=== PATIENT | female | born 1990 | race Caucasian/White ===

== ENCOUNTER 2018-07-26 01:07 | Outpatient (CLI) | payer MEDICAID, SELFPAY ==
--- NOTE | 2018-07-26 14:30 | DI.MRI_ITS ---
SYMPTOMS/DIAGNOSIS: ALTERED SENSATION OF SKIN HEAD, MIGRAINE HEADACHE, G43.909 BRAIN MRI: MRI examination of the brain was performed according to the usual protocol. Ventricular system is normal in appearance. No signal abnormality identified in the brain. There is normal flow void in the [place] vasculature. The orbital and temporal bone structures appear intact. Diffusion weighted imaging is within normal limits with no evidence of cerebral infarction. Susceptibility weighted imaging shows no evidence of hemorrhage. CONCLUSION: Normal brain MRI.
== END 2018-07-26 01:27 ==
PROVIDERS: PCP Nurse Practitioner Family; Visit Provider Nurse Practitioner Family
DX: G43.909 Migraine, unspecified, not intractable, without status migrainosus (principal); R20.0 Anesthesia of skin
CPT/HCPCS: 70551

== ENCOUNTER 2018-11-29 20:16 | Outpatient (REF) | payer MEDICAID, SELFPAY ==
[2018-11-29 20:02] LABS: Abs Immature Grans 0.02 k/cumm (0.0-0.09); Absolute Basophil Count 0.04 k/cumm (0.0-0.2); Absolute Eosinophil Count 0.15 k/cumm (0.0-0.7); Absolute Lymphocyte Count 2.53 k/cumm (1.2-3.4); Absolute Monocyte Count 0.57 k/cumm (0.11-0.7); Absolute Neutrophil Count 4.92 k/cumm (1.2-6.7); Basophils % 0.5; Eosinophils % 1.8; HCT 37.8 % (36.0-46.0); HGB 12.9 g/dL (12.0-15.5); Immature Grans % 0.2; Lymphocytes % 30.7; Mean Corp. HGB Concentration 34.1 g/dL (32.0-36.0); Mean Corpuscular Hemoglobin 30.8 pg (27.0-33.0); Mean Corpuscular Volume 90.2 fL (80-95); Mean Platelet Volume 10.9 fL (8.0-11.0); Monocytes % 6.9; Neutrophils % 59.9; Platelet Count 364 x1000/uL (130-400); RBC 4.19 m/cumm (4.00-5.20); RBC Distribution Width 12.1 % (11.7-14.6); White Blood Cell Count 8.23 k/cumm (4.4-10.8)
[2018-11-29 20:16] LABS: ALT 36 U/L (12-78); AST 20 U/L (15-37); Albumin 4.4 g/dL (3.4-5.0); Alkaline Phosphatase 80 U/L (46-116); Anion Gap 7.6 mmol/L (3-11); BUN 11 mg/dL (7-18); Bilirubin, Total 0.3 mg/dL (0.2-1.0); CO2 29.4 mmol/L (21.0-32.0); CREATININE 0.59 mg/dL (0.55-1.02); Calcium 9.9 mg/dL (8.5-10.1); Chloride 103 mmol/L (98-107); Glucose 83 mg/dL (70-100); Potassium 4.3 mmol/L (3.5-5.1); Sodium 140 mmol/L (136-145); TSH (W/Ref FT4) 0.96 uIU/mL (0.358-3.74); Total Protein 7.8 g/dL (6.4-8.2)
== END 2018-11-29 20:36 ==
LOC: NCHCN 20:16
PROVIDERS: PCP Nurse Practitioner Family; Visit Provider Nurse Practitioner Family
DX: R53.83 Other fatigue (principal); R23.2 Flushing; R11.0 Nausea; R42 Dizziness and giddiness; R19.7 Diarrhea, unspecified
CPT/HCPCS: 80053; 84443; 85025

== ENCOUNTER 2019-01-14 15:25 | Outpatient (REF) | payer MEDICAID, SELFPAY ==
[2019-01-17 18:11] LABS: 5-Hydroxyindoleacetic Acid, U 3.1 mg/24 h (<=8.0); Urine Volume 800 mL
[2019-01-18 01:21] LABS: Metanephrines, U 106 mcg/24 h; Normetanephrine, U 226 mcg/24 h; Total Metanephrines, U 332 mcg/24 h; Urine Volume 800 mL
[2019-01-18 13:23] LABS: Urine Volume 800 mL
[2019-01-19 21:26] LABS: Creatinine, 24hr Urine 0.98 g/24 h (0.50-2.15); Histamine, 24hr Urine 0.027 mg/24 h
== END 2019-01-14 15:45 ==
LOC: LBN 15:25
PROVIDERS: PCP Nurse Practitioner Family; Visit Provider Nurse Practitioner Family
DX: R23.2 Flushing (principal)
CPT/HCPCS: 81050; 82384; 83088; 83497; 83835

== ENCOUNTER 2019-01-15 15:27 | Outpatient (REF) | payer MEDICAID, SELFPAY ==
[2019-01-31 10:27] LABS: Prostaglandin D2, Random Ur 284 ng/L
== END 2019-01-15 15:47 ==
LOC: LBN 15:27
PROVIDERS: PCP Nurse Practitioner Family; Visit Provider Nurse Practitioner Family
DX: R23.2 Flushing (principal)
CPT/HCPCS: 84150

== ENCOUNTER 2019-03-21 16:29 | Outpatient (REF) | payer MEDICAID, SELFPAY ==
--- NOTE | 2019-03-21 15:45 | PAPFT_PTH ---
PATIENT: Camilla Isaacs LOC: [facility] U#:[id number] AGE/SX: 28/F ROOM: RE03/21/[address]: Mallory Pang NP : 1990 BED: DIS: 03/21/2019 SPEC #: [id number] RECD: 03/21/19 16:48 STATUS: DONNA REJalyn #: [id number] OTTO: 03/21/19 15:[address]: Mallory Pang NP DEPT: [facility] Cytology RECD BY: Carline Chong ENTERED: 03/21/19 16:49 SP TYPE: PAPFT OTHR DR: Nury Lo Tissues: 1 - CX/ENDOCX FOR PAP SMEARS Procedures: PAP THIN PREP/UVM Screening HPV DNA PROBE Comments: [id number]
== END 2019-03-21 16:49 ==
LOC: LBN 16:29
PROVIDERS: PCP Nurse Practitioner Family; Visit Provider Nurse Practitioner Women's Health
DX: Z12.4 Encounter for screening for malignant neoplasm of cervix (principal); Z11.51 Encounter for screening for human papillomavirus (HPV)
CPT/HCPCS: 88142; 87624

== ENCOUNTER 2019-06-17 15:05 | Emergency (ER) | payer MEDICAID, SELFPAY ==
[2019-06-17 15:09] VITALS: BP 125/79; PULSE 89; RESP 16; TEMP 36.3; O2SAT 98
--- NOTE | 2019-06-17 15:30 | W.ED.GENAD ---
Discharge Plan Disposition Patient Disposition: HOME Condition: Fair Discharge Details Chief Complaint: DentalOral Clinical Impression: Pain, dental Primary Care Provider: Rufino Kirk ED Provider: Olimpia David Home Meds and New Rx's Prescriptions: New clindamycin HCl 150 mg capsule 450 mg PO TID 7 Days Qty: 63 RF: 0 tramadol 50 mg tablet 50 mg PO Q6H PRN (Reason: pain) Qty: 7 RF: 0 ondansetron 4 mg tablet,disintegrating 4 mg PO Q6H PRN (Reason: nausea and vomiting) Qty: 7 RF: 0 Continued sumatriptan succinate 100 mg tablet See Rx Instructions PO .COMPLEX Qty: 12 RF: 5 ammonium lactate 12 % cream 1 applic TP BID RF: 0 albuterol sulfate [ProAir HFA] 90 mcg/actuation HFA aerosol inhaler 2 puff IH QID RF: 0 Mirena 20 mcg/24 hours (5 yrs) 52 mg intrauterine device 1 device IY ONCE RF: 0 triamcinolone acetonide 0.5 % cream 1 applic TP QID PRNRF: 0 bupropion HCl [Wellbutrin] 100 MG tablet 200 mg PO DAILY RF: 0 Discharge Instructions Instructions: Toothache (ED) Additional Instructions: Encourage hydration. Tylenol and ibuprofen as needed for discomfort. This is not sufficient at alleviating her discomfort, please use the tramadol as prescribed. Do not drive will take this medication. Only take as prescribed. Please take the clindamycin as prescribed. You are given your first dose here today. Even if symptoms improve, please take the entire course. Please call your dentist tomorrow to schedule follow-up. You may use Zofran if you develop any nausea. If you have fever/chills, increased swelling, inability stay hydrated or other new/worsening symptoms please seek care urgently once again. Please take a probiotic while on the clindamycin. Referrals: Rufino Kirk, MEDICAL COLLECTIONS SPECIALIST [Primary Care Provider] - Medical Decision Making Patient is a pleasant 29-year-old female presenting today with chief complaint of left lower dental pain. Patient underwent a tooth extraction 5 days ago by her dentist. Since that time, patient has had persistent pain that has been steadily increasing. She was prescribed Tylenol 3. She reports that she is tried 3 of these pills but has found them very sedating and not beneficial for her discomfort. She reports that she typically reacts poorly to narcotics and often becomes nauseated with them. She is concerned that there may be a retained fragment of tooth. Denies any fevers or chills. States that the swelling has come down some since surgery but has remained status quo past few days. On exam, patient does appear uncomfortable. She appears nontoxic. She has some swelling noted to the left inferior aspect of her face consistent with area of extraction. The gingiva around the area of extraction it appears swollen and erythematous. No drainage from the socket. Stitches in place. Unable to appreciate any retained fragments I did advise she will need this to be further assessed by her dentist. Patient has not been on any antibiotics. She does not have any sublingual swelling, difficulty breathing, stridor, wheezing. No trismus or change in her voice. Patient will be treated with antibiotics. Patient is allergic to penicillin, she will be placed on clindamycin. Encourage hydration. For pain control, patient will be prescribed tramadol as well as Zofran as needed to help with symptomatic management should occur. She is given strict return precautions. She will call dentist tomorrow to assess her postoperative discomfort. All of her questions and concerns were addressed and she is in agreement this plan. [facility] General Mode of arrival: ambulatory. Date/Time Provider Initiated Documentation: 06/17/19 15:30. Limitations to Documentation: no limitations. Information obtained by: patient, family and RN notes reviewed. History of Present Illness 29 year old F presents to the emergency department with the chief complaint of Left lower dental pain, described as moderate, with intensity rated at 7. Quality is described as aching, and is localized to the mouth. Patient reports no radiation. Patient started experiencing this day(s) (5) and it has been constant. No relieving factors improve symptom(s), Eating worsens symptoms . Patient notes no other symptoms.; denies fever/chills, rash and shortness of breath. Patient did receive the following treatments prior to arrival, NSAID Related Data Home Medications Medication Instructions Recorded Confirmed bupropion HCl [Wellbutrin] 200 mg PO DAILY 07/18/17 06/17/19 albuterol sulfate 90 mcg/actuation 2 puff IH QID 02/20/19 06/17/19 aerosol inhaler ammonium lactate 12 % topical cream 1 applic TP BID 02/20/19 06/17/19 levonorgestrel 20 mcg/24 hours (5 1 device IY ONCE 02/20/19 06/17/19 yrs) 52 mg intrauterine device triamcinolone acetonide 0.5 % 1 applic TP QID PRN 02/20/19 06/17/19 topical cream sumatriptan succinate 100 mg tablet See Rx Instructions PO .COMPLEX 04/25/19 06/17/19 #12 tab clindamycin HCl 450 mg PO TID 7 Days #63 cap 06/17/19 ondansetron 4 mg PO Q6H PRN #7 tab 06/17/19 tramadol 50 mg PO Q6H PRN #7 tab 06/17/19 Previous Rx's Medication Instructions Recorded sumatriptan succinate 100 mg tablet See Rx Instructions PO .COMPLEX 04/25/19 #12 tab clindamycin HCl 450 mg PO TID 7 Days #63 cap 06/17/19 ondansetron 4 mg PO Q6H PRN #7 tab 06/17/19 tramadol 50 mg PO Q6H PRN #7 tab 06/17/19 Allergies Allergy/AdvReac Type Severity Reaction Status Date / Time penicillin G Allergy Severe RASH Unverified 06/17/19 15:14 cefdinir Allergy Unknown HIVES Unverified 06/17/19 15:14 amoxicillin trihydrate AdvReac Severe vomiting Unverified 06/17/19 15:14 [From Augmentin] potassium clavulanate AdvReac Severe vomiting Unverified 06/17/19 15:14 [From Augmentin] ketamine AdvReac Unknown VISUAL Unverified 06/17/19 15:14 DISTURBANCES General Stated Complaint: DentalOral LUISA: 4 Review of Systems Constitutional Constitutional: Reports as per HPI, Denies chills, Denies fatigue, Denies fever(s), Denies headache(s) and Denies poor appetite Eyes Eyes: Denies change in vision and Denies irritation ENT Ears, Nose, Mouth, and Throat: Reports as per HPI, Reports dental pain, Denies dysphagia, Denies dizziness, Denies dry mouth, Denies ear discharge, Denies otalgia, Reports facial pain, Denies headache(s), Denies hoarseness, Denies lip swelling, Denies nasal congestion, Denies odynophagia and Denies sore throat Cardiovascular Cardiovascular: Reports as per HPI and Denies chest pain Respiratory Respiratory: Reports as per HPI and Denies cough Gastrointestinal Gastrointestinal: Reports as per HPI, Denies dysphagia, Denies nausea, Denies odynophagia and Denies vomiting Integumentary/Breasts Skin/Breast: Reports as per HPI, Denies erythema, Denies rash and Denies skin pain Neurologic Neurologic: Reports as per HPI, Denies dizziness and Denies headache(s) Endocrine Endocrine: Denies fatigue Allergic/Immunologic Allergic/Immunologic: Denies lip swelling [facility] Medical History Abdominal migraine (Acute) Depression (Chronic) IUD surveillance (Chronic) Migraine headache with aura (Acute) Mild anemia (Chronic) Social History Smoking/Tobacco Use Status: Never Alcohol Intake: never Drug use: Never Household members: significant other and children Number of Children: 2 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[employer] Do you feel safe in your relationship?: Yes Female Reproductive History Menstrual Age of Menarche: 10 control method: progestin IUCD History History 2 Para 2 Hx # Term Pregnancies Multiple births Hx # Pregnancies Ectopic pregnancies AB induced Hx Number of Living Children AB spontaneous Exam Const General: cooperative, healthy appearing, comfortable, no acute distress, well developed and well groomed Nutritional Appearance: average body habitus and well nourished Orientation: alert and awake [facility] Head: normal to inspection, normocephalic and atraumatic Ears: hearing grossly normal bilaterally, external ears normal and TM's normal bilaterally General nose exam: external nose normal and nares normal Face and sinus: sinuses nontender, face asymmetric (Swelling to the left lower aspect of her face consistent with tooth extract), no ecchymosis, no erythema and no fluctuance Mouth: oral mucosae normal, lip normal, tongue normal and oropharynx normal Teeth and gingiva: abnormal dentition (Patient has been extracted #19 tooth.) Teeth image: 1. Tooth is clearly been recently extracted. The stitch for closure is still visible. The surrounding gum is erythematous and swollen. No palpable area of fluctuance to suggest a drainable abscess. No pain along the lingual side but patient does have discomfort with palpation over the buccal aspect. No other abnormalities noted in the mouth. Throat: posterior oropharynx normal, tonsils normal and uvula midline Eyes General: appearance normal, both eyes and all related structures Neck Neck: normal visual inspection, full ROM, no lymphadenopathy, supple and no anterior neck swelling Resp Effort & Inspection: normal respiratory effort, able to speak in complete sentences and no respiratory distress Auscultation: clear to auscultation bilaterally, no rales, no rhonchi and no wheezes Cardio Rate: regular rate Rhythm: regular rhythm Heart Sounds: S1 normal and S2 normal Skin General skin exam: no rashes or lesions noted Trauma: no lacerations or abrasions Neuro General: alert and awake Cognition: normal cognition Speech: speech normal Gait: normal gait Psych Appearance: grossly normal and well kempt Mental Status: mental status grossly normal Speech and Movement: speech and movement normal Course Vital Signs Vital signs: Vital Signs Temperature 36.3 C L 06/17/19 15:09 Pulse 89 06/17/19 15:09 Respiratory Rate 16 06/17/19 15:09 Blood Pressure 125/79 06/17/19 15:09 Pulse Oximetry 98 06/17/19 15:09 Temperature 36.3 C L 06/17/19 15:09 Temperature Source Skin 06/17/19 15:09 Pulse 89 06/17/19 15:09 Respiratory Rate 16 06/17/19 15:09 Respiratory Effort Non-Labored 06/17/19 15:09 Blood Pressure 125/79 06/17/19 15:09 Blood Pressure Position Sitting 06/17/19 15:09 Pulse Oximetry 98 06/17/19 15:09 Oxygen Delivery Method Room Air 06/17/19 15:09 Oxygen Flow Rate 0 06/17/19 15:09 Pain Level 7 06/17/19 15:09
[2019-06-17] MEDS: traMADol 50 MG TAB PO (16:14)
[2019-06-17] MEDS: Clindamycin 150 MG CAP 450 MG PO (16:14)
== END 2019-06-17 16:35 | disposition home or self-care (01) ==
PROVIDERS: Emergency Provider Physician Assistant; PCP Nurse Practitioner Family
DX: K08.89 Other specified disorders of teeth and supporting structures (principal)
CPT/HCPCS: 99283

== ENCOUNTER 2020-02-02 18:17 | Observation (INO) | payer MEDICAID, SELFPAY ==
[2020-02-02] VITALS (15 sets, daily range): BP systolic 129–146; BP diastolic 75–88; PULSE 85–105; RESP 12–23; TEMP 36.7; O2SAT 100
--- NOTE | 2020-02-02 18:30 | DI.CT_ITS ---
EXAM: CT ABDOMEN PELVIS W CLINICAL HISTORY: RUQ abdominal pain.. TECHNIQUE: Imaging Protocol: Axial computed tomography images with coronal and sagittal reformatted images were created and reviewed CONTRAST MATERIAL: Intravenous: Omnipaque 350 Contrast volume:structured data in ml Oral: yes / no COMPARISON: None FINDINGS: ABDOMEN: Lung Bases: Normal where visualized. Liver: Normal density. No measurable mass. Gallbladder and biliary tract: No radiodense calculus or dilation. Pancreas: Normal density, no abnormal calcifications or inflammatory process. Spleen: Normal. Kidneys: Normal size, contour and axis. No radiodense stones or obstructive uropathy. No masses seen. Adrenal glands: No masses seen. Abdominal Aorta: Abdominal portion non-dilated. PELVIS: Bladder: Symmetric distention, no gross wall thickening. Bowel: No obstruction or bowel wall thickening. Normal appendix. Peritoneal cavity: There is a moderate quantity of ascites seen around the liver and extending along the right paracolic gutter. There is fluid in the pelvis with some increased density, consistent wit h hemorrhage. There is a right adnexal cystic lesion with thick rim measuring 4.4 by 4 x 6.2 cm. Th e left ovary appears normal. IUD is noted in the uterus. Bones: Within normal limits. Lymph nodes: Unremarkable. Impression: 6.2 centimeter right adnexal lesion with a thick wall. Moderate quantity ascites with probable hemor rhage. Active hemorrhage is not excluded. The findings could represent an ectopic versus hemorrhagic ovarian cyst. RADIATION DOSE DELIVERED: 659.82mGy.cm Total DLP DATA REPOSITORY: All CT scans at this facility are submitted to the National Radiology Data Registry (NRDR) Dose Index Registry (DIR) with the [employer] (ACR). RADIATION OPTIMIZATION: All CT scans at this facility use at least one of these dose optimization te chniques: automated exposure control; mA and/or kV adjustment per patient size (includes targeted exa ms where dose is matched to clinical indication); or iterative reconstruction.
--- NOTE | 2020-02-02 18:34 | W.ED.GENAD ---
Discharge Plan Disposition Patient Disposition: [facility] INPATIENT Condition: Stable Discharge Details Chief Complaint: Abd Prob Clinical Impression: Corpus luteum cyst rupture Admit Date/Time: 02/03/20 02:31 Admit Provider: Radha Marrufo Attending Provider: Radha Marrufo Primary Care Provider: Rufino Kirk ED Provider: Cyn Pollack Hospital Course Hospital Course: Patient was admitted through emergency room on the evening of 02/02/2020 with report of right and left lower quadrant abdominal pain. CAT scan showed a large hemoperitoneum and a corpus luteum cyst of the right ovary. Patient had stable vital signs and was afebrile initial hemoglobin 11.7. She underwent a laparoscopy early in the morning of 11/14/2019. Findings at the time of surgery: 300 cc of blood and clot distributed in the pelvis and upper abdomen. Normal-appearing adnexa with no evidence of phil bleeding. The pneumoperitoneum was evacuated with suction. Course was uncomplicated she was discharged to home later in the morning on postop day 0 tolerating a regular diet. Discharge plans include Percocet 5/325 1 tablet every 6 hours dispense #4 with ibuprofen 600 mg as needed. She was given instructions regarding activity and will follow with Dr. Marrufo in 1 week for incision check. Discharge Instructions Additional Instructions: Call [phone] on Tuesday02/04/2022 make a follow-up appointment with Dr. Marrufo. Take ibuprofen every 6 hours and use the Percocet for additional pain every 6 hours. You may take both together. Forms: Dr. Mancini's Laparoscopy Discharge Data Discharge Date/Time-TO BE ENTERED AT DEPARTURE: 02/03/20 00:55 Medical Decision Making <ARLEN Gomes - Last Filed: 02/04/20 16:56> 29-year-old patient presenting for complaints of abdominal pain. Patient reports she awoke this morning at 330 this morning with abdominal pain unable to get back to sleep due to discomfort. Patient reports predominantly right upper quadrant abdominal pain with mild radiation toward her flank and toward her right shoulder. Patient does report moderate abdominal bloating noted today. patient was able to eat lunch today however does report mild nausea through the day. Patient reports a pain of 7 out of 10 at this time. Patient concerned with the possibility of gallstones due to her site of pain. Patient denies any fevers, chills. Denies any Covid symptoms. Has no chest pain, difficulty breathing or shortness of breath or wheezing. Has no new cough. Patient denies any urinary symptoms. See HPI for more detail. Patient's medical history does not include migraines, depression currently has an IUD and history of heartburn. On exam patient does have notable abdominal tenderness specifically in the right upper quadrant but also has mild lower abdominal pain. We will plan to check CT to rule out acute cholecystitis. Will check baseline labs as well as urinalysis and prior to CT will check . Patient requested very judicial amounts of pain medication as she reports being quite sensitive. We will plan to 1 mg of morphine and additional 4 mg of Zofran and 1 L of IV fluid. Patient CT reveals hyperdense free fluid in the pelvis and abdomen with a large uterus and thick rim-enhancing right adnexal mass separate from the ovaries. Findings are of concern for possible ectopic with rupture. Recommended clinical correlation with beta-hCG which is negative. Other differential diagnosis include a ruptured hemorrhagic cyst or possible appendicitis with rupture. A normal-appearing appendix is not seen. This report was taken by Dr. Sow who subsequently spoke with BIOMETRIC FINGERPRINTING TECHNICIAN who plan to coordinate decision-making process with surgeon on-call. Spoke with patient on reevaluation who is reporting pain is more tolerable at this time. Patient remained stable in the emergency room. Patient did receive a second 1 mg dose of morphine. Spoke with Dr. Adali Marrufo who plans to evaluate patient in the emergency room. Dr. Adali Marrufo evaluated patient in the emergency room and plans to take patient to the operating room for laparoscopy, for concern of ruptured corpus luteal cyst. Dr. Marrufo did obtain surgical consent from the patient. Plan to admit patient. <Lucius Sow, DO - Last Filed: 02/02/20 21:19> 29-year-old female presents with complaint of abdominal pain starting at 3 AM this past morning. Exam demonstrates right-sided abdominal tenderness. Vital signs stable aside from mild tachycardia. CT scan was ordered by Kathryn Chan who is currently managing the patient. Radiology did call, states that there is a concerning central cystic mass/lesion in the right lower quadrant, initially concerning for ectopic however the patient's test is negative. Differential per radiology also includes ruptured appendicitis versus hemorrhagic cyst with bleeding as there is notable free fluid. On behalf of Kathryn I did contact OB and surgery discussed the case with Dr. Marrufo, as well as with surgery Dr. Dill, they will both independently be evaluating the case. Patient remains hemodynamically stable here in the ED. HPI <ARLEN Gomes - Last Filed: 02/04/20 16:56> General Date/Time Provider Initiated Documentation: 02/02/20 18:21. HPI Narrative: This is a 29-year-old patient who is quite pleasant presenting to the emergency room for complaints of abdominal pain which began at approximately 330 this morning. Patient does report mild waxing and waning nature throughout the day however pain is an approximately 7 out of 10 throughout the day. Patient does report mild nausea noted this morning. Has not subsequently vomited. Patient did have a single episode of diarrhea today. No blood in bowel movements. Patient reports predominantly right upper quadrant abdominal pain with mild right flank pain and occasional radiation toward her right shoulder. Patient denies dysuria, urgency or frequency. Denies hematuria. Denies vaginal discharge or bleeding. Currently has an IUD and has no significant concern of . Patient denies any headache or dizziness. Denies any fever, chills or sweats. Denies any cough, difficulty breathing or shortness of breath or wheezing. No increase in respiratory efforts. Patient denies any recent viral symptoms. No sore throat. Patient was able to eat a turkey sandwich today with no significant increase or change in her pain at lunchtime. Patient denies any rash. Patient denies any joint pain. Patient has no lower extremity complaints. Related Data Home Medications Medication Instructions Recorded Confirmed bupropion HCl [Wellbutrin] 200 mg PO DAILY 07/18/17 02/02/20 ammonium lactate 12 % topical cream 1 applic TP BID 02/20/19 02/02/20 levonorgestrel 20 mcg/24 hours (5 1 device IY ONCE 02/20/19 02/02/20 yrs) 52 mg intrauterine device triamcinolone acetonide 0.5 % 1 applic TP QID PRN 02/20/19 02/02/20 topical cream tramadol 50 mg PO Q6H PRN #7 tab 06/17/19 02/02/20 ondansetron 4 mg disintegrating 4 mg PO Q6H PRN #10 tab 02/03/20 tablet oxycodone-acetaminophen 5 mg-325 1 tab PO Q6H PRN #4 tab MDD 4 02/03/20 mg tablet Previous Rx's Medication Instructions Recorded tramadol 50 mg PO Q6H PRN #7 tab 06/17/19 ondansetron 4 mg disintegrating 4 mg PO Q6H PRN #10 tab 02/03/20 tablet oxycodone-acetaminophen 5 mg-325 1 tab PO Q6H PRN #4 tab MDD 4 02/03/20 mg tablet Allergies Allergy/AdvReac Type Severity Reaction Status Date / Time penicillin G Allergy Severe RASH Unverified 02/02/20 18:34 cefdinir Allergy Unknown HIVES Unverified 02/02/20 18:34 egg Allergy Unverified 02/02/20 23:05 amoxicillin trihydrate AdvReac Severe vomiting Unverified 02/02/20 18:34 [From Augmentin] potassium clavulanate AdvReac Severe vomiting Unverified 02/02/20 18:34 [From Augmentin] ketamine AdvReac Unknown VISUAL Unverified 02/02/20 18:34 DISTURBANCES General Stated Complaint: Abd Prob LUISA: 3 Review of Systems <ARLEN Gomes - Last Filed: 02/04/20 16:56> All systems reviewed & are unremarkable except as noted in HPI and below PFSH <ARLEN Gomes - Last Filed: 02/04/20 16:56> Medical History (Updated 02/02/20 @ 22:43 by Radha Marrufo MD) Abdominal migraine (Acute) Depression (Chronic) Hemoperitoneum (nontraumatic) (Acute) IUD surveillance (Chronic) Migraine headache with aura (Acute) Mild anemia (Chronic) Social History Smoking/Tobacco Use Status: Never Alcohol Intake: never Drug use: Never Substance use type: does not use Household members: significant other and children Number of Children: 2 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 Well hydrated. Alert and oriented. EYES: General normal appearance. Alignment normal. Eyelids normal. Conjunctiva normal. Sclera normal. PERRL. NECK: Normal visual inspection. FROM. No lymphadenopathy. Trachea midline. No Midline tenderness. CHEST: Normal insepection of the chest. RESP: Normal respiratory effort. Speaking full sentences. No cough. No wheezing. No retractions. Clear to auscaltation. Breath sound equal and present bilaterally. CARDIO: No JVD. Normal PMI. Regular Rate. Regular Rhythm. Normal peripheral pulses. GI: Normal inspection of abdomen. No distension. Soft. Obvious right upper quadrant tenderness with palpation which is moderate. Mild right lower quadrant and left lower quadrant pain. Bowel sounds present in all 4 quadrants. No rebound. No gaurding. MUSCULOSKELETAL: Normal Gait. FROM of all extremities. Distal neurovascularly intact. Sensation intact distally. Back: no CVAT bilaterally SKIN: Normal. Dry. No rashes. NEURO: Alert and awake. Speech clear. PSYCH: Normal affect. Cooperative. Course <ARLEN Gomes - Last Filed: 02/04/20 16:56> Vital Signs Vital signs: Vital Signs Temperature 36.7 C 02/02/20 18:20 Pulse 92 H 02/02/20 18:20 Respiratory Rate 18 02/02/20 18:20 Blood Pressure 146/88 H 02/02/20 18:20 Pulse Oximetry 100 02/02/20 18:20 Temperature 36.7 C 02/02/20 18:20 Temperature Source Oral 02/02/20 18:20 Pulse 92 H 02/02/20 18:20 Respiratory Rate 18 02/02/20 18:20 Blood Pressure 146/88 H 02/02/20 18:20 Blood Pressure Position Sitting 02/02/20 18:20 Pulse Oximetry 100 02/02/20 18:20 Oxygen Delivery Method Room Air 02/02/20 18:20 Oxygen Flow Rate 0 02/02/20 18:20 Pain Level 7 02/02/20 18:20
[2020-02-02 18:51] LABS: Abs Immature Grans 0.01 k/cumm (0.0-0.09); Absolute Basophil Count 0.02 k/cumm (0.0-0.2); Absolute Eosinophil Count 0.06 k/cumm (0.0-0.7); Absolute Lymphocyte Count 2.57 k/cumm (1.2-3.4); Absolute Monocyte Count 0.51 k/cumm (0.11-0.7); Absolute Neutrophil Count 5.22 k/cumm (1.2-6.7); Basophils % 0.2; Eosinophils % 0.7; HCT 34.4 % (36.0-46.0); HGB 11.7 g/dL (12.0-15.5); Immature Grans % 0.1 %; Lymphocytes % 30.6; Mean Corpuscular Hemoglobin 31.1 pg (27.0-33.0); Mean Corpuscular Volume 91.5 fL (80-95); Mean Platelet Volume 9.2 fL (8.0-11.0); Monocytes % 6.1; Neutrophils % 62.3; Platelet Count 329 x1000/uL (130-400); RBC 3.76 m/cumm (4.00-5.20); RBC Distribution Width 11.7 % (11.7-14.6); White Blood Cell Count 8.39 k/cumm (4.4-10.8)
[2020-02-02] MEDS: Ondansetron 4 MG/2 ML VIAL IVP ×2 (18:51→20:44)
[2020-02-02] MEDS: Normal Saline 1,000 ML 1000 ML IV (18:52)
[2020-02-02 19:01] LABS: ALT 53 U/L (14-59); AST 36 U/L (15-37); Alkaline Phosphatase 62 U/L (46-116); Anion Gap 4.2 mmol/L (3-11); BUN 11 mg/dL (7-18); Bilirubin, Total 0.4 mg/dL (0.2-1.0); CO2 30.8 mmol/L (21.0-32.0); CREATININE 0.86 mg/dL (0.55-1.02); Calcium 9.1 mg/dL (8.5-10.1); Chloride 102 mmol/L (98-107); Glucose 93 mg/dL (74-106); Lipase 142 U/L (73-393); Potassium 3.9 mmol/L (3.5-5.1); Sodium 137 mmol/L (136-145); Total Protein 7.6 g/dL (6.4-8.2)
[2020-02-02] MEDS: Omnipaque 350 MG/ML 100 ML BTL IJ (19:41)
[2020-02-02] MEDS: Normal Saline - Diluent 50 ML VIAL IV (19:42)
--- NOTE | 2020-02-02 20:24 | DI.VRAD_ITS ---
Addendum created by Renetta Redman MD on 02/02/2020 8:24:35 PM EDT THIS REPORT CONTAINS FINDINGS THAT MAY BE CRITICAL TO PATIENT CARE. The findings were verbally communicated via telephone conference with Dr Sow at 8:24 PM EDT on 02/02/2020. The findings were acknowledged and understood. Initial report created on 02/02/2020 8:24:01 PM EDT PROCEDURE INFORMATION: Exam: CT Abdomen And Pelvis With Contrast Exam date and time: 02/02/2020 6:34 PM Age: 29 years old Clinical indication: Other: Ruq abd pain TECHNIQUE: Imaging protocol: Computed tomography of the abdomen and pelvis with intravenous contrast. Radiation optimization: All CT scans at this facility use at least one of these dose optimization techniques: automated exposure control; mA and/or kV adjustment per patient size (includes targeted exams where dose is matched to clinical indication); or iterative reconstruction. Contrast material: OMNIPAQUE 350; Contrast volume: 81 ml; Contrast route: IV; COMPARISON: No relevant prior studies available. FINDINGS: Liver: Normal. No mass. Gallbladder and bile ducts: Normal. No calcified stones. No ductal dilation. Pancreas: Normal. No ductal dilation. Spleen: Normal. No splenomegaly. Adrenals: Normal. No mass. Kidneys and ureters: Normal. No hydronephrosis. Stomach and bowel: Unremarkable. No obstruction. No mucosal thickening. Appendix: A normal appendix is not definitely seen. Intraperitoneal space: Moderate hyperdense free fluid or blood in the abdomen and pelvis. Vasculature: Unremarkable. No abdominal aortic aneurysm. Lymph nodes: Unremarkable. No enlarged lymph nodes. Bladder: Unremarkable as visualized. Reproductive: IUD in place. Enlarged uterus. Thick walled and septated enhancing right adnexal mass measuring 4.4 x 4.0 x 6.2 cm, which appears separate from the right ovary and left ovary. Recommend correlation with beta HCG and pelvic ultrasound for further evaluation. Bones/joints: Unremarkable. No acute fracture. Soft tissues: Ventral hernia. Umbilical hernia with omental fat. IMPRESSION: Hyperdense free fluid in the pelvis and abdomen within enlarged uterus and a thick rim enhancing right adnexal mass separate from the ovaries. The findings are of concern for possible ectopic with rupture. Recommend clinical correlation with beta HCG and pelvic ultrasound. Up other differentials could include a ruptured hemorrhagic cyst or possibly appendicitis with rupture. A normal appearing appendix is not definitely seen. Dictated and Authenticated by: Renetta Юлия MD. Ordering:FLAKITA Addison MD
[2020-02-02] MEDS: Normal Saline Flush 10 ML SYR IVP (20:45)
[2020-02-02] MEDS: Normal Saline 500 ML IV (20:45)
[2020-02-02 20:47] LABS: Bilirubin Negative (Negative); Blood Negative (Negative); Clarity Clear (Clear); Glucose Negative (Negative); Ketones Negative (Negative); Leukocyte Esterase Negative (Negative); Nitrite Negative (Negative); Urobilinogen 0.2 EU/dL (Up TO 0.2); pH 5.5 (5-8)
[2020-02-02 21:03] LABS: HCG Quant, Pregnancy < 1 mIU/mL (1-3)
--- NOTE | 2020-02-02 22:32 | W.PM.HP.N ---
Date of service: 02/02/20 Time of Service: 22:33 Assessment and Plan Assessment and plan (1) Hemoperitoneum (nontraumatic): Status: Acute Assessment and plan: Patient is hemodynamically stable. Her pain precludes her being discharged and I have recommended a diagnostic laparoscopy to assess her adnexa and to evacuate any residual abdominal or pelvic blood. She was counseled regarding the risks of the procedure including the risk of infection damage to surrounding structures including bowel bladder ureters and the need for a laparotomy if any of those structures are injured. She is aware that she could have possible ovarian cystectomy versus oophorectomy in the event that we are unable to control any bleeding. Informed consent was obtained her questions were answered. History of Present Illness History of Present Illness Chief Complaint: Pelvic pain beginning at 3:00 02/02/2020 Narrative: Patient is a 29-year-old para 2 female with an IUD in place for contraception who reports sharp diffuse abdominal pain beginning at 2:00 this morning. It worsened throughout the course of the day and she presented to the emergency department where she underwent a CAT scan that showed a right ovarian cyst and intracavitary fluid suggestive of blood. Patient's vital signs were hemodynamic. She was evaluated found to be hCG negative with a hemoglobin of 11.4. General surgery was consulted of the the images were not consistent with appendicitis. I agreed with the assessment and recommended a diagnostic laparoscopy possible oophorectomy and evacuation of abdominal hemoperitoneum. Review of Systems Constitutional Constitutional: Reports body ache(s) (Abdominal pain making lying down difficult and painful) Cardiovascular Cardiovascular: Reports system reviewed and no additional complaints, except as documented Respiratory Respiratory: Reports system reviewed and no additional complaints, except as documented Gastrointestinal Gastrointestinal: Reports abdominal pain (Diffuse right greater than left side as the day progressed), Denies change in bowel habits and Denies constipation Genitourinary Genitourinary: Reports amenorrhea (Patient has a IUD in for contraception.) Musculoskeletal Musculoskeletal: Reports system reviewed and no additional complaints, except as documented Psychiatric Psychiatric: Reports as per HPI (Understandably anxious about the surgery) [facility] Medical History Abdominal migraine (Acute) Depression (Chronic) IUD surveillance (Chronic) Migraine headache with aura (Acute) Mild anemia (Chronic) Social History Smoking/Tobacco Use Status: Never Alcohol Intake: never Drug use: Never Substance use type: does not use Household members: significant other and children Number of Children: 2 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[employer] Do you feel safe at home: Yes Do you feel safe in your relationship?: Yes Female Reproductive History Menstrual Age of Menarche: 10 control method: progestin IUCD History History 2 Para 2 Hx # Term Pregnancies Multiple births Hx # Pregnancies Ectopic pregnancies AB induced Hx Number of Living Children AB spontaneous Meds Home Medications and Allergies Home Medications Medication Instructions Recorded Confirmed Type bupropion HCl [Wellbutrin] 200 mg PO DAILY 07/18/17 02/02/20 History ammonium lactate 12 % topical cream 1 applic TP BID 02/20/19 02/02/20 History levonorgestrel 20 mcg/24 hours (5 1 device IY ONCE 02/20/19 02/02/20 History yrs) 52 mg intrauterine device triamcinolone acetonide 0.5 % 1 applic TP QID PRN 02/20/19 02/02/20 History topical cream ondansetron 4 mg PO Q6H PRN #7 tab 06/17/19 02/02/20 Rx tramadol 50 mg PO Q6H PRN #7 tab 06/17/19 02/02/20 Rx Allergies Allergy/AdvReac Type Severity Reaction Status Date / Time penicillin G Allergy Severe RASH Unverified 02/02/20 18:34 cefdinir Allergy Unknown HIVES Unverified 02/02/20 18:34 amoxicillin trihydrate AdvReac Severe vomiting Unverified 02/02/20 18:34 [From Augmentin] potassium clavulanate AdvReac Severe vomiting Unverified 02/02/20 18:34 [From Augmentin] ketamine AdvReac Unknown VISUAL Unverified 02/02/20 18:34 DISTURBANCES Exam Const General: in distress (Difficulty lying down and on gurney) Nutritional Appearance: average body habitus Orientation: alert, awake and oriented x3 Resp Effort & Inspection: normal respiratory effort Auscultation: clear to auscultation bilaterally Cardio Rate: regular rate Rhythm: regular rhythm GI Inspection: normal to inspection Palpation: soft, no hepatosplenomegaly and tender (Diffusely tender in all 4 quadrants) Percussion: normal to percussion Auscultation: normal bowel sounds Rectal Exam - female: deferred General: deferred Skin General skin exam: no rashes or lesions noted Extrem General: normal to inspection, full ROM and capillary refill normal Psych Appearance: well kempt Speech and Movement: speech and movement normal Mood: anxious mood Affect: normal affect Attitude: cooperative Thought Process: normal Thought Content: normal Insight: insight good Results Labs Result diagrams: 02/02/20 18:39 02/02/20 18:39 Labs: Laboratory Results - last 24 hr 02/02/20 02/02/20 02/02/20 18:39 18:39 18:39 WBC 8.39 RBC 3.76 L Hgb 11.7 L Hct 34.4 L MCV 91.5 MCH 31.1 MCHC 34.0 RDW 11.7 Plt Count 329 MPV 9.2 Immature Gran % 0.1 Neutrophils % 62.3 Lymphocytes % 30.6 Monocytes % 6.1 Eosinophils % 0.7 Basophils % 0.2 Absolute Neutrophils 5.22 Absolute Lymphocytes 2.57 Absolute Monocytes 0.51 Absolute Eosinophils 0.06 Absolute Basophils 0.02 Sodium 137 Potassium 3.9 Chloride 102 Carbon Dioxide 30.8 Anion Gap 4.2 BUN 11 Creatinine 0.86 Estimated GFR/1.73 m2 >= 60.00 Glucose 93 Calcium 9.1 Total Bilirubin 0.4 AST 36 ALT 53 Alkaline Phosphatase 62 Total Protein 7.6 Albumin 4.0 Lipase 142 Beta HCG, Quant < 1 L Urine Color Urine Clarity Urine pH Ur Specific [place] Urine Protein Urine Ketones Urine Blood Urine Nitrite Urine Bilirubin Urine Urobilinogen Ur Leukocyte Esterase Urine Glucose 02/02/20 20:40 WBC RBC Hgb Hct MCV MCH MCHC RDW Plt Count MPV Immature Gran % Neutrophils % Lymphocytes % Monocytes % Eosinophils % Basophils % Absolute Neutrophils Absolute Lymphocytes Absolute Monocytes Absolute Eosinophils Absolute Basophils Sodium Potassium Chloride Carbon Dioxide Anion Gap BUN Creatinine Estimated GFR/1.73 m2 Glucose Calcium Total Bilirubin AST ALT Alkaline Phosphatase Total Protein Albumin Lipase Beta HCG, Quant Urine Color Yellow Urine Clarity Clear Urine pH 5.5 Ur Specific [place] 1.010 Urine Protein Negative Urine Ketones Negative Urine Blood Negative Urine Nitrite Negative Urine Bilirubin Negative Urine Urobilinogen 0.2 Ur Leukocyte Esterase Negative Urine Glucose Negative Last Vital Signs Temp 98.1 F 02/02/20 20:50 Pulse 105 H 02/02/20 20:50 Resp 14 02/02/20 20:50 BP 137/75 02/02/20 20:50 Pulse Ox 100 02/02/20 20:50 COVID-19 Screening In the past 14 days, have you traveled outside of [place] or [place]?: NO Had IN PERSON contact w/suspected or confirmed C-19 person: No
[2020-02-02 23:22] LABS: PTT Activated 25.2 sec (21.0-31.4); Prothrombin Time 10.1 sec (9.3-11.0)
[2020-02-03] VITALS (11 sets, daily range): BP systolic 91–117; BP diastolic 55–66; PULSE 66–89; RESP 12–18; TEMP 35.9–36.7; O2SAT 94–100
--- NOTE | 2020-02-03 00:40 | NUR.NOTE ---
Pt lying in bed in NAD. Reports pain 6/10 in RUQ. Reports pain as tolerable.
[2020-02-03] MEDS: Lactated Ringers 1,000 ML 80 ML IV (01:03)
[2020-02-03] MEDS: Bupivacaine 0.25% Pres-Free 30 ML VIAL (01:47)
--- NOTE | 2020-02-03 02:36 | W.PM.OP ---
Date of service: 02/03/20 Time of Service: 02:36 Operative Note Operative Note DATE OF PROCEDURE: 02/03/20 PRE-OP DIAGNOSIS: Ruptured corpus luteum cyst, hemoperitoneum PROCEDURE: Laparoscopy and evacuation of hemoperitoneum SURGEON: Radha Marrufo GRAPHIC ARTS INSTRUCTOR: Ratna Browning ANESTHESIA: APRIL ESTIMATED BLOOD LOSS: 300 PATHOLOGY: none sent COMPLICATIONS: None Patient was transported to: PACU Patient's condition: stable Indications: 29-year-old G2, P2 female with an IUD for contraception had an onset of acute abdominal pain early on the morning of 02/02/2020. The pain intensified throughout the day and she presented to emergency department where a CAT scan was performed and showed enlarged right ovary and hemoperitoneum. Findings: Normal right and left fallopian tubes. Normal-appearing left ovary. Right ovary enlarged with a hemostatic corpus luteum cyst. No evidence of active bleeding 300 cc of clotted blood in the pelvis and free blood in the paracolic gutters and by the liver. Procedure Description: Patient was taken to the operating room was placed in the dorsal supine position and general endotracheal anesthesia was administered without difficulty. She was then prepped and draped in the usual sterile fashion. The umbilicus was infiltrated with quarter percent Marcaine without epinephrine and a 5 mm vertical skin incision was made in the umbilical fold. Through this incision a varies needle was introduced with carbon dioxide gas insufflation active so that intra-abdominal placement was confirmed by drop in the intra-abdominal pressure. Pneumoperitoneum was established and a 5 mill Visiport was placed into the abdomen through the umbilical port site under direct observation. The abdomen was inspected with the above-noted findings. Patient was then placed in Trendelenburg and under direct visualization two 5 mm trocar and sleeves were introduced through the incisions 6 cm inferior and diagonal to the umbilical port site. A suction aspirator was used to aspirate any blood and clots in the pelvis and upper abdomen. After copiously irrigating and suction aspirating normal saline and blood the pelvis appeared free of clots and residual blood as did the upper abdomen. Patient was taken out of Trendelenburg and the adnexa inspected and noted to be hemostatic. On direct visualization both lower 5 mm trochars were removed pneumoperitoneum reduced and the 5 mm umbilical port removed. The skin of all port sites was reapproximated with 4-0 Monocryl sutures and the skin with subcuticular fashion and the incisions were covered with skin glue. Patient was awakened extubated and transported recovery in stable condition. All sponge lap needle counts correct x2
[2020-02-03] MEDS: Normal Saline Flush 10 ML SYR IVP ×2 (04:03→08:51)
[2020-02-03 05:43] LABS: HGB 10.7 g/dL (12.0-15.5); Mean Corp. HGB Concentration 33.4 g/dL (32.0-36.0); Mean Corpuscular Volume 92.8 fL (80-95); Mean Platelet Volume 9.4 fL (8.0-11.0); Platelet Count 288 x1000/uL (130-400); RBC 3.45 m/cumm (4.00-5.20); RBC Distribution Width 11.8 % (11.7-14.6); White Blood Cell Count 12.17 k/cumm (4.4-10.8)
[2020-02-03] MEDS: Ondansetron 4 MG/2 ML VIAL IVP (08:52)
[2020-02-03] MEDS: Ibuprofen 600 MG TAB PO (08:56)
[2020-02-03] MEDS: Docusate Sodium 100 MG CAP PO (08:57)
[2020-02-03] MEDS: oxyCODONE 5 mg/Acetaminophen 325 mg TAB PO (10:38)
[2020-02-03 22:45] LABS: COVID-19 RT-PCR UVMMC Result Negative (Negative)
== END 2020-02-03 12:10 | disposition home or self-care (01) ==
LOC: ER 22:43 → OBS 02-03 05:12
PROVIDERS: Student in an Organized Health Care Education/Training Program; Admitting Provider Obstetrics & Gynecology Gynecology; Emergency Provider Physician Assistant; PCP Nurse Practitioner Family; Visit Provider Obstetrics & Gynecology Gynecology
PROC: (CPT 49320; principal; 2020-02-02 23:40)
DX: K66.1 Hemoperitoneum (principal); N83.11 Corpus luteum cyst of right ovary; Z97.5 Presence of (intrauterine) contraceptive device
CPT/HCPCS: 49322; 36415; 80053; 81025; 83690; 85027; 86850; 86900; 86901; 96361; 96374; 96375; 96376; 99221; 99285; U0003; 74177; 81003; 84702; 85025; 85610; 85730; 87086; J1100; J1885; J2001; J2405; J2704; J3010; J3490

== ENCOUNTER 2020-12-25 18:35 | Emergency (ER) | payer MEDICAID, SELFPAY ==
[2020-12-25] VITALS (15 sets, daily range): BP systolic 105–131; BP diastolic 70–97; PULSE 70–94; RESP 9–20; TEMP 36.7; O2SAT 97–100
--- NOTE | 2020-12-25 18:30 | RT.EKG_ITS ---
APPROVED REPORT Exam: Resting ECG Patient Location: E HR:83 bpm ECG Measurements Heart Rate 83 AXIS DC 153 P 77 QRSd 86 QRS 73 QT 362 T 15 QTc 427 Conclusion Sinus rhythm...normal P axis, V-rate 60- 99
--- NOTE | 2020-12-25 18:45 | DI.RAD_ITS ---
EXAM: XR PORTABLE CHEST AP CLINICAL HISTORY: chest pain TECHNIQUE: 2D digital imaging was performed. COMPARISON: No exams were available for comparison FINDINGS: MEDIASTINUM: Normal. HEART: Normal. PULMONARY VASCULATURE: Normal. LUNGS: Clear. PLEURAL SPACE: No pleural effusion or pneumothorax. BONE:Within normal limits for the patient's age. OTHER FINDINGS:Normal. IMPRESSION: No acute pulmonary findings. DATA REPOSITORY: RADIATION DOSE DELIVERED:
--- NOTE | 2020-12-25 18:49 | ED.GENADUL_ITS ---
Discharge Plan Disposition Patient Disposition: HOME Condition: Stable Discharge Details Clinical Impression: Chest pain Primary Care Provider: Rufino Kirk ED Provider: Marcus Pang Home Meds and New Rx's Prescriptions: Continued Mirena 20 mcg/24 hours (5 yrs) 52 mg intrauterine device 1 device IY ONCE RF: 0 triamcinolone acetonide 0.5 % cream 1 applic TP QID PRNRF: 0 bupropion HCl [Wellbutrin] 100 MG tablet 200 mg PO DAILY RF: 0 Discharge Instructions Instructions: Chest Pain (ED) Additional Instructions: Your blood work and cat scan did not show anything concerning at this time. This is likely chest wall pain follow up with your primary care provider as soon as possible especially if symptoms continue if you have severe worsening pain, feel more ill or difficulty breathing return to the emergency department Medical Decision Making 30 yo female who states she tested positive for covid on 12/13 after having flu like symptoms that resolved 5 days ago, and since yesterday has had intermittent right upper chest pain radiating to the right arm. Denies dyspnea, fevers, chills, and can't think of anything that makes it worse other than pushing on the area. Denies pain with exertion, diaphoresis or n/v. She denies abdominal pain, denies smoking or alcohol use and uses marijuna occasionally otherwise no other drug use. ARrives speaking in full sentences in no distress and appears well and denies any pain unless I push on the right upper chest just below the clavicle, no rashes or palpable deformity. Full range of motion of the arm and normal distal pulses and sensation without swelling. No murmurs and clear lungs, no leg swelling or calf tenderness. I suspect chest wall pain given reproducible pain. Heart score is 1, will obtain troponin. No hypoxia tachycardia, pleuritic pain nor evidence of dvt on exam so doubt PE at this time. No tearing back pain and normal pulses so doubt dissection. pt stable and continues to appear well, labs and imaging unremarkable. STill only has pain when I push on the chest. Given pain since yesterday do not feel repeat troponin indicated, will d/c and have her f/u with pcp a soon as possible, return precautions given Differential Diagnosis Differential Diagnosis: pleurisy, costochondritis, myocarditis Imaging Data Radiologic Study: Attestation: I personally reviewed and interpreted this imaging study as follows: Imaging: X-Ray Radiologist's impression: no acute findings Lab Data Lab results reviewed: Yes I reviewed the patient's lab results. ECG Data Attestation: I personally reviewed and interpreted this ECG (s) as follows: Prior ECG tracings: not available for review Interpretation: sinus rhythm, rate of 83, pr 153, qtc 427, no acute st t wave ischemic findings HPI General Mode of arrival: ambulatory . Date/Time Provider Initiated Documentation: 12/25/20 18:41 . Limitations to Documentation: no limitations . Information obtained by: patient . History of Present Illness 30 year old F presents to the emergency department with the chief complaint of chest pain, described as moderate, Patient started experiencing this day(s) (1) and it has been intermittent. No relieving factors improve symptom(s), No exacerbating factors reported . Patient did receive the following treatments prior to arrival, none Related Data Home Medications Medication Instructions Recorded Confirmed bupropion HCl [Wellbutrin] 200 mg PO DAILY 07/18/17 02/12/20 levonorgestrel 20 mcg/24 hours (6 1 device IY ONCE 02/20/19 02/12/20 yrs) 52 mg intrauterine device triamcinolone acetonide 0.5 % 1 applic TP QID PRN 02/20/19 02/12/20 topical cream Allergies Allergy/AdvReac Type Severity Reaction Status Date / Time penicillin G Allergy Severe RASH Unverified 12/25/20 18:52 cefdinir Allergy Unknown HIVES Unverified 12/25/20 18:52 egg Allergy Unverified 12/25/20 18:52 amoxicillin trihydrate AdvReac Severe vomiting Unverified 12/25/20 18:52 [From Augmentin] potassium clavulanate AdvReac Severe vomiting Unverified 12/25/20 18:52 [From Augmentin] ketamine AdvReac Unknown VISUAL Unverified 12/25/20 18:52 DISTURBANCES General LUISA: 3 Review of Systems All systems reviewed & are unremarkable except as noted in HPI and below Constitutional Constitutional: Denies chills, Denies fever(s) and Denies weakness Cardiovascular Cardiovascular: Denies dyspnea Respiratory Respiratory: Denies cough and Denies dyspnea Gastrointestinal Gastrointestinal: Denies abdominal pain, Denies nausea and Denies vomiting Musculoskeletal Musculoskeletal: Denies joint swelling Neurologic Neurologic: Denies weakness Psychiatric Psychiatric: Denies depression PFSH Medical History (Updated 12/25/20 @ 19:35 by Marcus Pang MD) Abdominal migraine Depression Hemoperitoneum (nontraumatic) IUD surveillance Migraine headache with aura Mild anemia Family History Mother Asthma Social History Smoking/Tobacco Use Status: Never Smoking risk assessment performed?: Yes Alcohol Intake: current Alcohol Intake frequency: holidays/special occasions only Drug use: Rarely Substance use type: marijuana Details: no alcohol x3 months Household members: significant other and children Number of Children: 2 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[employer] Do you feel safe at home: Yes Do you feel safe in your relationship?: Yes Female Reproductive History Menstrual Age of Menarche: 10 control method: progestin IUCD History History 2 Para 2 Hx # Term Pregnancies Multiple births Hx # Pregnancies Ectopic pregnancies AB induced Hx Number of Living Children AB spontaneous Exam Const General: no acute distress Orientation: alert HENMT Head: normal to inspection Ears: external ears normal General nose exam: external nose normal Mouth: moist mucous membranes Eyes General: appearance normal, both eyes and all related structures Neck Neck: normal visual inspection Chest Chest: normal inspection of the chest and tenderness Resp Effort & Inspection: normal respiratory effort and able to speak in complete sentences Cardio Rate: regular rate Skin General skin exam: no rashes or lesions noted Neuro General: patient alert and patient oriented x3 Extrem General: normal to inspection Psych Mental Status: mental status grossly normal
[2020-12-25 19:05] LABS: Abs Immature Grans 0.01 10^3/uL (0.0-0.06); Absolute Basophil Count 0.04 10^3/uL (0.0-0.2); Absolute Eosinophil Count 0.07 10^3/uL (0.0-0.7); Absolute Lymphocyte Count 2.08 10^3/uL (1.2-3.4); Absolute Monocyte Count 0.49 10^3/uL (0.1-0.8); Absolute Neutrophil Count 6.45 10^3/uL (1.2-6.7); Basophils % 0.4; Eosinophils % 0.8; HCT 37.9 % (36.0-46.0); HGB 12.7 g/dL (11.2-15.7); Immature Grans % 0.1; Lymphocytes % 22.8; MCH 30.9 pg (27.0-33.0); MCHC 33.5 % (32.0-36.0); MCV 92.2 fL (80-95); MPV 10.5 fL (8.0-11.0); Monocytes % 5.4; Neutrophils % 70.5; Nucleated RBC 0 %; Platelet Count 304 10^3/uL (130-400); RBC 4.11 10^6/uL (3.93-5.22); RDW 11.1 % (11.7-14.6); RDW-SD 37.8 fL; WBC 9.14 10^3/uL (4.4-10.8)
[2020-12-25 19:17] LABS: ALT 19 U/L (14-59); AST 15 U/L (15-37); Albumin 4.7 g/dL (3.4-5.0); Alkaline Phosphatase 57 U/L (46-116); Anion Gap 9.3 mmol/L (3-11); BUN 9 mg/dL (7-18); Bilirubin, Total 0.4 mg/dL (0.2-1.0); CO2 28.7 mmol/L (21.0-32.0); CREATININE 0.8 mg/dL (0.55-1.02); Calcium 9.8 mg/dL (8.5-10.1); Chloride 103 mmol/L (98-107); Glucose 90 mg/dL (74-106); Potassium 3.9 mmol/L (3.5-5.1); Sodium 141 mmol/L (136-145); Total Protein 8.3 g/dL (6.4-8.2)
[2020-12-25 19:18] LABS: Troponin I < 0.05 ng/mL (<0.06)
--- NOTE | 2020-12-25 19:22 | DI.VRAD_ITS ---
PROCEDURE INFORMATION: Exam: XR Chest Exam date and time: 12/25/2020 6:57 PM Age: 30 years old Clinical indication: Chest pain TECHNIQUE: Imaging protocol: XR of the chest. Views: 1 view. COMPARISON: No relevant prior studies available. FINDINGS: Lungs: Unremarkable. No consolidation. Pleural spaces: Unremarkable. No pleural effusion. No pneumothorax. Heart/Mediastinum: Unremarkable. No cardiomegaly. Bones/joints: Unremarkable. IMPRESSION: No acute abnormality. Dictated and Authenticated by: Montez Ortiz MD. Ordering:KELSEA Velazquez MD
--- NOTE | 2020-12-26 00:58 | NUR.NOTE ---
Faxed referral to [facility].Nursing Note:
== END 2020-12-25 20:02 | disposition home or self-care (01) ==
PROVIDERS: Emergency Provider Emergency Medicine; PCP Nurse Practitioner Family
DX: R07.9 Chest pain, unspecified (principal)
CPT/HCPCS: 80053; 81025; 93005; 99284; 71045; 84484; 85025; 93010; 99283

== ENCOUNTER 2021-03-25 12:18 | Emergency (ER) | payer MEDICAID, SELFPAY ==
--- NOTE | 2021-03-25 12:26 | ED.GENADUL_ITS ---
Discharge Plan Disposition Patient Disposition: HOME Condition: Stable Discharge Details Clinical Impression: Contusion of left elbow, Abrasion of left elbow, Back contusion, Fall at home Primary Care Provider: Rufino Kirk ED Provider: Yasmin Patrick Home Meds and New Rx's Prescriptions: Continued Mirena 20 mcg/24 hours (5 yrs) 52 mg intrauterine device 1 device IY ONCE RF: 0 triamcinolone acetonide 0.5 % cream 1 applic TP QID PRNRF: 0 bupropion HCl [Wellbutrin] 100 MG tablet 200 mg PO DAILY RF: 0 Discharge Instructions Instructions: Contusion in Adults (ED), Abrasion (ED) Additional Instructions: Rest, ice, and elevate the affected area as much as possible. Alternate tylenol and motrin as needed and directed for pain. You can wear the Dewayne wrap and/or sling to help with rest and compression. Follow-up with your primary care doctor in 1 week as needed and for referral to orthopedics if your symptoms do not improve or worsen. Return to the emergency department with any worsening or new concerning symptoms. Referrals: Carlos Chris MD [ [facility] STAFF PHYSICIAN] - Discharge Data Discharge Date/Time-TO BE ENTERED AT DEPARTURE: 03/25/21 14:48 Discharge Physician: Yasmin Patrick Medical Decision Making 30-year-old female presents with left elbow injury after mechanical fall downstairs 2 days ago. Also complains of some left lower back pain. Denies h ead injury. She has a contusion and abrasion to her left olecranon with pain with full extension. There is no deformity. She has healing ecchymosis to her left flank but no midline spinal tenderness, tenderness overlying left ribs, and lungs are clear with normal oxygen saturation. Abdomen soft and nontender. Tetanus up-to-date 2014. History and presentation not consistent with rib fracture, pneumothorax or acute abdominal injury. Do not see an indication for chest or abdomen imaging. Will obtain a elbow x-ray. Patient declines a dose of ibuprofen here. X-ray reviewed and negative. Bandage and Dewayne wrap placed to the left elbow. She was given a sling to go. Advised to follow up with the primary care doctor for re-evaluation. Usual and customary return precautions given prior to discharge. Medical Records Medical records reviewed: Yes I reviewed the patient's medical records. Imaging Data Radiologic Study: Radiologist's impression: XR ELBOW LT COMPLETE CLINICAL HISTORY: s/p fall onto L elbow, r/o fx. TECHNIQUE: 2D digital imaging was performed. COMPARISON: No exams were available for comparison FINDINGS: There is no evidence of fracture or elbow joint effusion. There is no swelling of the olecranon bursa. Radial head appears unremarkable. Epicondyles appear unremarkable. Bone density is normal. No osseous lesions. HPI General Mode of arrival: ambulatory . Date/Time Provider Initiated Documentation: 03/25/21 12:24 . Limitations to Documentation: no limitations . Information obtained by: patient . HPI Narrative: Patient is a 30-year-old female presents with left elbow injury after slip and fall down a few metal stairs outside 4 days ago. She states she hit her left elbow and her left lower back on the plastic covering of the stairs. She denies any head injury. She states her lower back has pain at times but mainly complains of left elbow pain. She has been resting, icing and alternating Tylenol and Motrin. She has not taken any medication for pain today. She states she has been breathing normally without nausea, vomiting, abdominal pain, leg pain weakness or numbness. She is unsure of her tetanus status. Related Data Home Medications Medication Instructions Recorded Confirmed bupropion HCl [Wellbutrin] 200 mg PO DAILY 07/18/17 03/25/21 levonorgestrel 20 mcg/24 hours (6 1 device IY ONCE 02/20/19 03/25/21 yrs) 52 mg intrauterine device triamcinolone acetonide 0.5 % 1 applic TP QID PRN 02/20/19 03/25/21 topical cream Allergies Allergy/AdvReac Type Severity Reaction Status Date / Time penicillin G Allergy Severe RASH Unverified 03/25/21 12:31 cefdinir Allergy Unknown HIVES Unverified 03/25/21 12:31 egg Allergy Unverified 03/25/21 12:31 amoxicillin trihydrate AdvReac Severe vomiting Unverified 03/25/21 12:31 [From Augmentin] potassium clavulanate AdvReac Severe vomiting Unverified 03/25/21 12:31 [From Augmentin] ketamine AdvReac Unknown VISUAL Unverified 03/25/21 12:31 DISTURBANCES General LUISA: 3 Review of Systems All systems reviewed & are unremarkable except as noted in HPI and below Constitutional Constitutional: Reports as per HPI, Denies chills and Denies fever(s) Eyes Eyes: Denies blurry vision ENT Ears, Nose, Mouth, and Throat: Denies dizziness, Denies sore throat and Denies throat swelling Cardiovascular Cardiovascular: Denies chest pain and Denies dyspnea Respiratory Respiratory: Denies cough and Denies dyspnea Gastrointestinal Gastrointestinal: Denies abdominal pain, Denies diarrhea and Denies vomiting Genitourinary Genitourinary: Denies hematuria and Denies dysuria Musculoskeletal Musculoskeletal: Reports back pain and Denies numbness Integumentary/Breasts Skin/Breast: Denies lesions and Denies rash Neurologic Neurologic: Denies dizziness, Denies localized weakness and Denies numbness Allergic/Immunologic Allergic/Immunologic: Denies throat swelling [facility] Medical History (Updated 03/25/21 @ 14:35 by Yasmin Patrick DO) Abdominal migraine Depression Hemoperitoneum (nontraumatic) IUD surveillance Migraine headache with aura Mild anemia Family History Mother Asthma Social History Smoking/Tobacco Use Status: Never Smoking risk assessment performed?: Yes Alcohol Intake: current Alcohol Intake frequency: holidays/special occasions only Drug use: Rarely Substance use type: marijuana Details: no alcohol x3 months Household members: significant other and children Number of Children: 2 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[employer] Do you feel safe at home: Yes Do you feel safe in your relationship?: Yes Female Reproductive History Menstrual Age of Menarche: 10 control method: progestin IUCD History History 2 Para 2 Hx # Term Pregnancies Multiple births Hx # Pregnancies Ectopic pregnancies AB induced Hx Number of Living Children AB spontaneous Exam Const General: cooperative, healthy appearing and no acute distress HENMT Head: normal to inspection Face and sinus: normal facial exam Eyes General: appearance normal, both eyes and all related structures EOM: EOM intact bilaterally Neck Neck: normal visual inspection and No submandibular swelling Lymphatic: no lymphadenopathy noted Chest Chest: normal inspection of the chest and no tenderness Resp Effort & Inspection: normal respiratory effort and able to speak in complete sentences Auscultation: clear to auscultation bilaterally Cardio Rate: regular rate Rhythm: regular rhythm GI Inspection: normal to inspection Palpation: soft, not firm, not rigid and nontender Auscultation: normal bowel sounds Back/Spine/Pelvis Cervical Spine: No cervical spinal tenderness Thoracic/Lumbar Spine: thoracic and lumbar spine normal to inspection, No thoracic spinal tenderness and No lumbar spinal tenderness Pelvis: no pain with anterior-posterior compression Back/spine/pelvis image: 1. Healing tender ecchymoses. No step off or open wounds. Skin General skin exam: no rashes or lesions noted Neuro General: patient alert, patient awake and patient oriented x3 Cognition: normal cognition Speech: speech normal Motor: muscle tone normal throughout Sensory Exam: no sensory deficits noted Extrem Elbow/forearm/wrist images: 1. Tenderness, edema and ecchymosis. There are two 1 x 2 mm superficial abrasions. No active bleeding. Other: Pain in left elbow with range of motion, most specifically extension. No pain in left shoulder, left wrist or hand with range of motion. No orthopedic deformities noted. No pain in right upper extremity or bilateral lower extremities with range of motion. Bilateral distal pulses intact. Psych Appearance: grossly normal Mental Status: mental status grossly normal Speech and Movement: speech and movement normal Affect: normal affect
[2021-03-25 12:27] VITALS: BP 118/67; PULSE 80; RESP 16; TEMP 36.9; O2SAT 99
--- NOTE | 2021-03-25 13:22 | DI.RAD_ITS ---
Exam(s) XR ELBOW LT COMPLETE EXAM: XR ELBOW LT COMPLETE CLINICAL HISTORY: s/p fall onto L elbow, r/o fx. TECHNIQUE: 2D digital imaging was performed. COMPARISON: No exams were available for comparison FINDINGS: There is no evidence of fracture or elbow joint effusion. There is no swelling of the olecranon burs a. Radial head appears unremarkable. Epicondyles appear unremarkable. Bone density is normal. No osseous lesions. IMPRESSION: No fracture evident. DATA REPOSITORY: RADIATION DOSE DELIVERED:
== END 2021-03-25 14:48 | disposition home or self-care (01) ==
PROVIDERS: Emergency Provider Physician Assistant; PCP Nurse Practitioner Family
DX: S50.02XA Contusion of left elbow, initial encounter (principal); S30.0XXA Contusion of lower back and pelvis, initial encounter; W10.8XXA Fall (on) (from) other stairs and steps, initial encounter
CPT/HCPCS: 81025; 99283; 73080; 99282

== ENCOUNTER 2021-10-21 17:55 | Outpatient (REF) | payer MEDICAID, SELFPAY ==
[2021-10-23 10:53] LABS: COVID-19 RT-PCR UVMMC Result Negative (Negative)
== END 2021-10-21 17:56 | disposition home or self-care (01) ==
LOC: LBN 17:55
PROVIDERS: PCP Nurse Practitioner Family; Visit Provider Physician Assistant Medical
DX: Z20.822 Contact with and (suspected) exposure to COVID-19 (principal); J34.89 Other specified disorders of nose and nasal sinuses
CPT/HCPCS: U0003

== ENCOUNTER 2022-01-13 12:02 | Emergency (ER) | payer MEDICAID, SELFPAY ==
[2022-01-13 12:05] VITALS: BP 126/88; PULSE 79; RESP 16; TEMP 36.6; O2SAT 100
--- NOTE | 2022-01-13 12:28 | W.ED.GENAD ---
Discharge Plan Disposition Patient Disposition: HOME Condition: Stable Discharge Details Clinical Impression: Abdominal pain Primary Care Provider: Rufino Kirk ED Provider: Marcus Pang Home Meds and New Rx's Prescriptions: New ondansetron 4 mg tablet,disintegrating 4 mg PO Q8H PRN (Reason: nausea and vomiting) Qty: 30 0RF Continued Mirena 20 mcg/24 hours (5 yrs) 52 mg intrauterine device 1 device IY ONCE 0RF triamcinolone acetonide 0.5 % cream 1 applic TP QID PRN0RF Discharge Instructions Instructions: Abdominal Pain (ED) Additional Instructions: IF symptoms continue next week follow up with your primary care provider you can try taking over the counter pepcid daily if you feel more ill, have severe worsening pain or persistent vomit return to the emergency department Medical Decision Making 31 yo female who had a prior hemorrhagic cyst and had evacuation of hemoperitoneum, denies other abdominal surgeries, comes in with intermittent mid abdomen pain and nausea since Tuesday. She states Tuesday and Tuesday she had diarrhea and that resolved but since her stools are formed again she thinks they look black and darker. She denies hx of gerd and no hematemesis. She can't think of anything that makes the pain better or worse. She arrives stable, states pain is currently mild. She has tenderness to the mid abdomen and llq, no guarding or rebound. She is deferring rectal exam at this time and would rather provide stool sample. Will obtain labs to evaluate for pancreatitis, hepatitis, and ct abd/pelvis to evaluate for diverticulitis. labs and imaging unremarkable, has leukocytes on urine but denies any urinary symptoms. She feels well, denies symptoms now. H/H normal. Discussed with pt and she defers rectal exam which I feel is reasonable given her h/h is normal. She was advised to f/u with her pcp and return precautions given Differential Diagnosis Differential Diagnosis: pancreatitis, gastroenteritis, diverticulitis Medical Records Medical records reviewed: Yes I reviewed the patient's medical records. Imaging Data Radiologic Study: Attestation: I personally reviewed and interpreted this imaging study as follows: Imaging: CT Scan Radiologist's impression: no acute findings Lab Data Lab results reviewed: Yes I reviewed the patient's lab results. HPI General Mode of arrival: ambulatory. Date/Time Provider Initiated Documentation: 01/13/22 12:05. Limitations to Documentation: no limitations. Information obtained by: patient. History of Present Illness 31 year old F presents to the emergency department with the chief complaint of abdominal pain, described as moderate, Patient started experiencing this day(s) (5) and it has been constant. improves with No relieving factors improve symptom(s), No exacerbating factors reported . Patient notes other (nausea). Patient did receive the following treatments prior to arrival, none Related Data Home Medications Medication Instructions Recorded Confirmed levonorgestrel 20 mcg/24 hours (7 1 device IY ONCE 02/20/19 01/13/22 yrs) 52 mg intrauterine device (Mirena) triamcinolone acetonide 0.5 % 1 applic TP QID PRN 02/20/19 01/13/22 topical cream ondansetron 4 mg disintegrating 4 mg PO Q8H PRN #30 tab 01/13/22 tablet Previous Rx's Medication Instructions Recorded ondansetron 4 mg disintegrating 4 mg PO Q8H PRN #30 tab 01/13/22 tablet Allergies Allergy/AdvReac Type Severity Reaction Status Date / Time penicillin G Allergy Severe RASH Unverified 01/13/22 12:17 cefdinir Allergy Unknown HIVES Unverified 01/13/22 12:17 egg Allergy Unverified 01/13/22 12:17 amoxicillin trihydrate AdvReac Severe vomiting Unverified 01/13/22 12:17 [From Augmentin] potassium clavulanate AdvReac Severe vomiting Unverified 01/13/22 12:17 [From Augmentin] ketamine AdvReac Unknown VISUAL Unverified 01/13/22 12:17 DISTURBANCES General Stated Complaint: Abd Prob LUISA: 3 Review of Systems All systems reviewed & are unremarkable except as noted in HPI and below Constitutional Constitutional: Denies chills, Denies fever(s) and Denies weakness Eyes Eyes: Denies loss of vision Cardiovascular Cardiovascular: Denies chest pain and Denies dyspnea Respiratory Respiratory: Denies cough and Denies dyspnea Gastrointestinal Gastrointestinal: Denies vomiting Genitourinary Genitourinary: Denies dysuria Integumentary/Breasts Skin/Breast: Denies rash Neurologic Neurologic: Denies loss of vision and Denies weakness PFSH All Active Problems (Updated 01/13/22 @ 13:56 by Marcus Pang MD) Chest pain (Acute) Contusion of left elbow (Acute) Abrasion of left elbow (Acute) Back contusion (Acute) Fall at home (Acute) Abdominal pain (Acute) Hemoperitoneum (nontraumatic) (Acute) Mild anemia (Chronic) Abdominal migraine (Acute) Migraine headache with aura (Acute) Depression (Chronic) IUD surveillance (Chronic) Dyshidrosis (Acute) Migraine headache (Chronic) Loss of sensation of skin (Acute) Flushing (Acute) Dizziness (Acute) Heartburn (Chronic) Family History Mother Asthma Social History Smoking/Tobacco Use Status: Never Smoking risk assessment performed?: Yes Alcohol Intake: current Alcohol Intake frequency: holidays/special occasions only Drug use: Rarely Substance use type: marijuana Details: no alcohol x3 months Household members: significant other and children Number of Children: 2 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[employer] Do you feel safe at home: Yes Do you feel safe in your relationship?: Yes Female Reproductive History Menstrual Age of Menarche: 10 control method: progestin IUCD History History 2 Para 2 Hx # Term Pregnancies Multiple births Hx # Pregnancies Ectopic pregnancies AB induced Hx Number of Living Children AB spontaneous Exam Const General: no acute distress Orientation: alert HENMT Head: normal to inspection Ears: external ears normal General nose exam: external nose normal Mouth: moist mucous membranes Eyes General: appearance normal, both eyes and all related structures Neck Neck: normal visual inspection Resp Effort & Inspection: normal respiratory effort and able to speak in complete sentences Cardio Rate: regular rate GI Palpation: soft, not firm and no guarding Skin General skin exam: no rashes or lesions noted Neuro General: patient alert and patient oriented x3 Extrem General: normal to inspection Psych Mental Status: mental status grossly normal Course Vital Signs Vital signs: Vital Signs Temperature 36.6 C 01/13/22 12:05 Pulse 79 01/13/22 12:05 Respiratory Rate 16 01/13/22 12:05 Blood Pressure 126/88 01/13/22 12:05 Pulse Oximetry 100 01/13/22 12:05 Temperature 36.6 C 01/13/22 12:05 Pulse 79 01/13/22 12:05 Respiratory Rate 16 01/13/22 12:05 Respiratory Effort 01/13/22 12:06 Blood Pressure 126/88 01/13/22 12:05 Pulse Oximetry 100 01/13/22 12:05 Pain Level 4 01/13/22 12:05
[2022-01-13 12:29] LABS: Abs Immature Grans 0.02 10^3/uL (0.0-0.06); Absolute Basophil Count 0.04 10^3/uL (0.0-0.2); Absolute Eosinophil Count 0.09 10^3/uL (0.0-0.7); Absolute Lymphocyte Count 2.09 10^3/uL (1.2-3.4); Basophils % 0.5; Eosinophils % 1.2; HCT 38.7 % (36.0-46.0); HGB 12.9 g/dL (11.2-15.7); Immature Grans % 0.3; Lymphocytes % 27.7; MCH 30.9 pg (27.0-33.0); MCHC 33.3 % (32.0-36.0); MCV 93 fL (80-95); MPV 9.4 fL (8.0-11.0); Monocytes % 5.3; Platelet Count 340 10^3/uL (130-400); RBC 4.17 10^6/uL (3.93-5.22); RDW 11.9 % (11.7-14.6); RDW-SD 40.5 fL; WBC 7.54 10^3/uL (4.4-10.8)
[2022-01-13 12:48] LABS: Bilirubin Negative (Negative); Blood Trace-intact (Negative); Clarity Clear (Clear); Glucose Negative (Negative); Ketones Negative (Negative); Leukocyte Esterase Trace (Negative); Nitrite Negative (Negative); Specific Gravity 1.025 (1.005-1.025); Urobilinogen 0.2 EU/dL (Up TO 0.2); pH 6.5 (5-8)
[2022-01-13 12:52] LABS: ALT 35 U/L (14-59); AST 19 U/L (15-37); Albumin 4.2 g/dL (3.4-5.0); Alkaline Phosphatase 71 U/L (46-116); Anion Gap 5.9 mmol/L (3-11); BUN 9 mg/dL (7-18); Bilirubin, Direct 0.1 mg/dL (0.0-0.2); Bilirubin, Total 0.3 mg/dL (0.2-1.0); CO2 30.1 mmol/L (21.0-32.0); CREATININE 0.7 mg/dL (0.55-1.02); Calcium 8.7 mg/dL (8.5-10.1); Chloride 103 mmol/L (98-107); Glucose 97 mg/dL (74-106); Lipase 167 U/L (73-393); Potassium 4.3 mmol/L (3.5-5.1); Sodium 139 mmol/L (136-145); Total Protein 7.8 g/dL (6.4-8.2)
[2022-01-13 13:00] LABS: Bacteria Few HPF (Negative); Casts Negative LPF (Negative); Crystals Negative HPF (Negative); Epithelial Cells Many HPF (Negative); Mucus Trace (Negative)
[2022-01-13 13:01] LABS: C & S Indicated? No/Sq. Contamination
[2022-01-13] MEDS: Omnipaque 350 MG/ML 100 ML BTL 77 ML IJ (13:24)
--- NOTE | 2022-01-13 13:31 | DI.CT_ITS ---
Exam(s) CT ABDOMEN PELVIS W EXAM: CT ABDOMEN PELVIS W CLINICAL HISTORY: sharp mid abdomen pain. TECHNIQUE: Imaging Protocol: Axial computed tomography images with coronal and sagittal reformatted images were created and reviewed CONTRAST MATERIAL: Intravenous: Omnipaque 350 Contrast volume: 77 ml Oral: no COMPARISON: CT CT ABDOMEN PELVIS W from 02/02/2020 FINDINGS: ABDOMEN: Lung Bases: Normal where visualized. Liver: Normal density. No measurable mass. Gallbladder and biliary tract: No radiodense calculus or dilation. Pancreas: Normal density, no abnormal calcifications or inflammatory process. Spleen: Normal. Kidneys: Normal size, contour and axis. No radiodense stones or obstructive uropathy. No masses seen. Adrenal glands: No masses seen. Abdominal Aorta: Abdominal portion non-dilated. Tissues: Small amount of fat at the umbilicus. PELVIS: Bladder: No gross wall thickening. No calculi.No focal mass. Bowel: Moderate to increased stool, greater in the right side of the colon. No obstruction or bowel wall thickening. Appendix normal. Peritoneal cavity: No ascites, collection or mesenteric inflammatory response. Bones: Within normal limits for age. Reproductive organs: IUD. Within normal limits. Lymph nodes: Unremarkable. Impression: Unremarkable CT scan of the abdomen and pelvis. RADIATION DOSE DELIVERED: 583.02mGy.cm Total DLP DATA REPOSITORY: All CT scans at this facility are submitted to the National Radiology Data Registry (NRDR) Dose Index Registry (DIR) with the [employer] ([employer]). RADIATION OPTIMIZATION: All CT scans at this facility use at least one of these dose optimization te chniques: automated exposure control; mA and/or kV adjustment per patient size (includes targeted exa ms where dose is matched to clinical indication); or iterative reconstruction.
[2022-01-13 14:10] VITALS: BP 128/84; PULSE 70; RESP 17; TEMP 37; O2SAT 99
== END 2022-01-13 14:08 | disposition home or self-care (01) ==
PROVIDERS: Emergency Provider Emergency Medicine; PCP Nurse Practitioner Family
DX: R10.9 Unspecified abdominal pain (principal); R11.0 Nausea
CPT/HCPCS: 36415; 80053; 81025; 83690; 99285; 74177; 81003; 81015; 82248; 85025; 99284; J3490

== ENCOUNTER 2022-05-20 12:30 | Outpatient (REF) | payer MEDICAID, SELFPAY ==
[2022-05-20 14:54] LABS: HCT 36.7 % (36.0-46.0); HGB 12.3 g/dL (11.2-15.7); MCH 30.8 pg (27.0-33.0); MCHC 33.5 % (32.0-36.0); MCV 92 fL (80-95); MPV 10.7 fL (8.0-11.0); Platelet Count 344 10^3/uL (130-400); RBC 3.99 10^6/uL (3.93-5.22); RDW 11.5 % (11.7-14.6); RDW-SD 39.1 fL
== END 2022-05-20 12:31 | disposition home or self-care (01) ==
LOC: LBN 12:30
PROVIDERS: PCP Nurse Practitioner Family; Visit Provider Nurse Practitioner Family
DX: R23.8 Other skin changes (principal)
CPT/HCPCS: 85027

== ENCOUNTER 2022-07-29 17:44 | Outpatient (REF) | payer MEDICAID, SELFPAY ==
[2022-07-29 22:19] LABS: Influenza A PCR Negative (Negative); Influenza B PCR Negative (Negative); RSV PCR Negative (Negative)
[2022-07-29 22:44] LABS: COVID-19 PCR Positive (Negative); Source Nasopharynx
== END 2022-07-29 17:45 | disposition home or self-care (01) ==
LOC: LBN 17:44
PROVIDERS: Visit Provider Physician Assistant Medical
DX: Z20.822 Contact with and (suspected) exposure to COVID-19 (principal); J11.1 Influenza due to unidentified influenza virus with other respiratory manifestations
CPT/HCPCS: 87637

== ENCOUNTER 2022-08-11 16:03 | Outpatient (REF) | payer MEDICAID, SELFPAY ==
[2022-08-11 19:33] LABS: Abs Immature Grans 0.01 10^3/uL (0.0-0.06); Absolute Basophil Count 0.05 10^3/uL (0.0-0.2); Absolute Eosinophil Count 0.12 10^3/uL (0.0-0.7); Absolute Monocyte Count 0.49 10^3/uL (0.1-0.8); Basophils % 0.7; Eosinophils % 1.6; HCT 37.5 % (36.0-46.0); HGB 12.7 g/dL (11.2-15.7); Immature Grans % 0.1; Lymphocytes % 28.5; MCH 30.8 pg (27.0-33.0); MCHC 33.9 % (32.0-36.0); MCV 91 fL (80-95); Monocytes % 6.6; Neutrophils % 62.5; Platelet Count 355 10^3/uL (130-400); RBC 4.13 10^6/uL (3.93-5.22); RDW 11.4 % (11.7-14.6); RDW-SD 37.9 fL; WBC 7.37 10^3/uL (4.4-10.8)
[2022-08-11 19:50] LABS: ALT 15 U/L (14-59); AST 13 U/L (15-37); Albumin 4.2 g/dL (3.4-5.0); Alkaline Phosphatase 59 U/L (46-116); Anion Gap 4.5 mmol/L (3-11); BUN 11 mg/dL (7-18); Bilirubin, Total 0.5 mg/dL (0.2-1.0); CO2 30.5 mmol/L (21.0-32.0); CREATININE 0.8 mg/dL (0.55-1.02); Calcium 9.2 mg/dL (8.5-10.1); Chloride 104 mmol/L (98-107); Estimated GFR 99.09 (mL/min/1.73m2); Glucose 88 mg/dL (74-106); Lipase 110 U/L (73-393); Potassium 4.3 mmol/L (3.5-5.1); Sodium 139 mmol/L (136-145); Total Protein 7.5 g/dL (6.4-8.2)
== END 2022-08-11 16:04 | disposition home or self-care (01) ==
LOC: NCHCN 16:03
PROVIDERS: Visit Provider Family Medicine
DX: R10.13 Epigastric pain (principal)
CPT/HCPCS: 80053; 83690; 85025

== ENCOUNTER → 2022-08-12 09:32 | Outpatient (CLI) | payer MEDICAID, SELFPAY ==
--- NOTE | 2022-08-12 15:00 | DI.RAD_ITS ---
Exam(s) XR CHEST 2V PA LATERAL EXAM: XR CHEST 2V PA LATERAL CLINICAL HISTORY: RALES, R09.89 TECHNIQUE: 2D digital imaging was performed. COMPARISON: CR,XR XR PORTABLE CHEST AP from 12/25/2020 FINDINGS: The heart is not enlarged. The lungs are clear and well expanded. No pleural effusion seen. Mediastin al contours appear intact. IMPRESSION: Normal chest. RADIATION DOSE DELIVERED: Total DLP
== END ==
PROVIDERS: Visit Provider Family Medicine
DX: R09.89 Other specified symptoms and signs involving the circulatory and respiratory systems (principal)
CPT/HCPCS: 71046

== ENCOUNTER 2022-08-19 12:08 | Outpatient (REF) | payer MEDICAID, SELFPAY ==
[2022-08-19 18:12] LABS: Abs Immature Grans 0.02 10^3/uL (0.0-0.06); Absolute Basophil Count 0.04 10^3/uL (0.0-0.2); Absolute Eosinophil Count 0.13 10^3/uL (0.0-0.7); Absolute Lymphocyte Count 2.38 10^3/uL (1.2-3.4); Absolute Monocyte Count 0.49 10^3/uL (0.1-0.8); Absolute Neutrophil Count 3.87 10^3/uL (1.2-6.7); Basophils % 0.6; Eosinophils % 1.9; HCT 38.4 % (36.0-46.0); HGB 12.8 g/dL (11.2-15.7); Immature Grans % 0.3; Lymphocytes % 34.3; MCH 30.1 pg (27.0-33.0); MCHC 33.3 % (32.0-36.0); MCV 90 fL (80-95); MPV 10.5 fL (8.0-11.0); Monocytes % 7.1; Neutrophils % 55.8; Platelet Count 326 10^3/uL (130-400); RBC 4.25 10^6/uL (3.93-5.22); RDW 11.3 % (11.7-14.6); RDW-SD 37.5 fL; WBC 6.93 10^3/uL (4.4-10.8)
[2022-08-19 18:25] LABS: ALT 16 U/L (14-59); AST 23 U/L (15-37); Albumin 4.3 g/dL (3.4-5.0); Alkaline Phosphatase 59 U/L (46-116); Amylase 53 U/L (25-115); Anion Gap 8.1 mmol/L (3-11); BUN 11 mg/dL (7-18); Bilirubin, Total 0.3 mg/dL (0.2-1.0); CO2 29.9 mmol/L (21.0-32.0); CREATININE 0.8 mg/dL (0.55-1.02); Calcium 9.3 mg/dL (8.5-10.1); Chloride 100 mmol/L (98-107); Estimated GFR 99.09 (mL/min/1.73m2); Glucose 98 mg/dL (74-106); Lipase 119 U/L (73-393); Potassium 3.6 mmol/L (3.5-5.1); Sodium 138 mmol/L (136-145); Total Protein 7.9 g/dL (6.4-8.2)
== END 2022-08-19 12:09 | disposition home or self-care (01) ==
LOC: NCHCN 12:08
PROVIDERS: Visit Provider Nurse Practitioner Family
DX: R10.84 Generalized abdominal pain (principal); R11.0 Nausea; R53.83 Other fatigue; R19.7 Diarrhea, unspecified
CPT/HCPCS: 80053; 83690; 82150; 85025

== ENCOUNTER → 2022-09-03 00:14 | Outpatient (CLI) | payer MEDICAID, SELFPAY ==
[2022-09-03] MEDS: Barium Sulfate 2% W/V-Creamy Vanilla Smoothie 450 ML BTL PO ×2 (12:18→12:19)
--- NOTE | 2022-09-03 14:35 | DI.CT_ITS ---
Exam(s) CT ABDOMEN PELVIS W EXAM: CT ABDOMEN PELVIS W CLINICAL HISTORY: ABD PAIN, R10.84,NAUSEA,R11.0,DIARRHEA,R19.7,EPIGASTRIC PAIN,R10.13 TECHNIQUE: Imaging Protocol: Axial computed tomography images with coronal and sagittal reformatted images were created and reviewed CONTRAST MATERIAL: Intravenous: Omnipaque 350 Contrast volume:80 mL Oral: Yes COMPARISON: CT CT ABDOMEN PELVIS W from 01/13/2022 FINDINGS: ABDOMEN: Lung Bases: Normal where visualized. Liver: Normal density. No measurable mass. There are 2 tiny hypodensities in the liver. They are too small for further characterization but likely reflect small cysts. Portal, Superior Mesenteric, and Splenic Veins: Unremarkable. Gallbladder and Biliary Tract: No radiodense calculus or dilation. Pancreas: Normal density, no abnormal calcifications or inflammatory process. Spleen: There is a 1.9 cm hyperdense peripherally enhancing mass in the spleen likely reflecting a he mangioma. Adrenals: No masses seen. Kidneys: Normal size, contour and axis. No radiodense stones or obstructive uropathy. No masses seen. Abdominal Aorta: Abdominal portion non-dilated. Bowel: No obstruction or bowel wall thickening. Appendix is unremarkable. Peritoneal Cavity: No ascites, collection or mesenteric inflammatory response. No free air. Lymph Nodes: Within normal limits. Bones: Within normal limits for the patient's age. Soft Tissues: There is a small fat containing umbilical hernia. PELVIS: Bladder: The urinary bladder is collapsed. No gross abnormalities identified. Reproductive Organs: There is an IUD which is appears in good position. There are ovarian follicular cysts present. Lymph Nodes: Within normal limits. Bones: Within normal limits for the patient's age. IMPRESSION: No acute abdominal or pelvic process. RADIATION DOSE DELIVERED: 664.83mGy.cm Total DLP DATA REPOSITORY: All CT scans at this facility are submitted to the National Radiology Data Registry (NRDR) Dose Index Registry (DIR) with the [employer] ([employer]). RADIATION OPTIMIZATION: All CT scans at this facility use at least one of these dose optimization te chniques: automated exposure control; mA and/or kV adjustment per patient size (includes targeted exa ms where dose is matched to clinical indication); or iterative reconstruction.
[2022-09-03] MEDS: Omnipaque 350 MG/ML 100 ML BTL IJ (14:43)
[2022-09-03] MEDS: Normal Saline - Diluent 50 ML VIAL IJ (14:44)
[2022-09-03] MEDS: Normal Saline Flush 10 ML SYR IVP (14:44)
== END ==
PROVIDERS: Visit Provider Nurse Practitioner Family
DX: R10.84 Generalized abdominal pain (principal); R10.13 Epigastric pain; R19.7 Diarrhea, unspecified; R11.0 Nausea; K76.89 Other specified diseases of liver; R16.1 Splenomegaly, not elsewhere classified; Z97.5 Presence of (intrauterine) contraceptive device; N83.01 Follicular cyst of right ovary; N83.02 Follicular cyst of left ovary
CPT/HCPCS: 74177; J3490

== ENCOUNTER 2022-10-21 15:47 | Outpatient (REF) | payer MEDICAID, SELFPAY ==
[2022-10-25 11:40] LABS: Lyme Ab w Rflx to Lyme Confirm Negative (Negative)
[2022-10-25 16:35] LABS: Anaplasma phagocytophilum Negative (Negative); B. miyamotoi PCR Negative (Negative); Babesia divergens/MO-1 Negative (Negative); Babesia duncani Negative (Negative); Babesia microti Negative (Negative); Ehrlichia chaffeensis Negative (Negative); Ehrlichia ewingii/canis Negative (Negative); Ehrlichia muris eauclairensis Negative (Negative)
== END 2022-10-21 15:48 | disposition home or self-care (01) ==
LOC: NCHCN 15:47
PROVIDERS: Visit Provider Nurse Practitioner Family
DX: R11.0 Nausea (principal); R53.83 Other fatigue; M25.59 Pain in other specified joint
CPT/HCPCS: 87798; 86618

== ENCOUNTER 2022-12-10 13:12 | Outpatient (REF) | payer MEDICAID, SELFPAY ==
[2022-12-10 18:26] LABS: ESR 3 mm/hr (0-20)
[2022-12-10 18:28] LABS: Abs Immature Grans 0.01 10^3/uL (0.0-0.06); Absolute Basophil Count 0.05 10^3/uL (0.0-0.2); Absolute Eosinophil Count 0.11 10^3/uL (0.0-0.7); Absolute Lymphocyte Count 2.06 10^3/uL (1.2-3.4); Absolute Monocyte Count 0.39 10^3/uL (0.1-0.8); Absolute Neutrophil Count 3.42 10^3/uL (1.2-6.7); Basophils % 0.8; Eosinophils % 1.8; HCT 39.1 % (36.0-46.0); HGB 13.3 g/dL (11.2-15.7); Immature Grans % 0.2; Lymphocytes % 34.1; MCH 30.7 pg (27.0-33.0); MCV 90 fL (80-95); MPV 10.5 fL (8.0-11.0); Monocytes % 6.5; Neutrophils % 56.6; Platelet Count 329 10^3/uL (130-400); RBC 4.33 10^6/uL (3.93-5.22); RDW 11.5 % (11.7-14.6); WBC 6.04 10^3/uL (4.4-10.8)
[2022-12-10 19:41] LABS: ALT 13 U/L (14-59); AST 17 U/L (15-37); Albumin 4.3 g/dL (3.4-5.0); Alkaline Phosphatase 55 U/L (46-116); Anion Gap 6.6 mmol/L (3-11); BUN 11 mg/dL (7-18); Bilirubin, Total 0.3 mg/dL (0.2-1.0); CO2 29.4 mmol/L (21.0-32.0); CREATININE 0.8 mg/dL (0.55-1.02); Calcium 9.3 mg/dL (8.5-10.1); Chloride 104 mmol/L (98-107); Estimated GFR 99.09 (mL/min/1.73m2); Glucose 97 mg/dL (74-106); Potassium 4.5 mmol/L (3.5-5.1); Sodium 140 mmol/L (136-145); Total Protein 7.9 g/dL (6.4-8.2)
[2022-12-13 14:02] LABS: ANA Interpretation Negative (Negative)
== END 2022-12-10 13:13 | disposition home or self-care (01) ==
LOC: NCHCN 13:12
PROVIDERS: PCP Nurse Practitioner Family; Visit Provider Nurse Practitioner Family
DX: R53.83 Other fatigue (principal); M25.59 Pain in other specified joint; R10.13 Epigastric pain
CPT/HCPCS: 80053; 85652; 85025; 86038

== ENCOUNTER 2023-07-19 13:48 | Outpatient (REF) | payer MEDICAID, SELFPAY ==
--- NOTE | 2023-07-19 13:02 | PAPFT_PTH ---
PATIENT: Camilla Isaacs LOC: [facility] U#:[id number] AGE/SX: 33/F ROOM: RE07/19/[address]: Radha Marrufo : 1990 BED: DIS: 07/19/2023 SPEC #: [id number] RECD: 07/19/23 17:13 STATUS: DONNA REJalyn #: [id number] OTTO: 07/19/23 13:[address]: Radha Marrufo DEPT: [facility] Cytology RECD BY: Carline Chong ENTERED: 07/19/23 17:14 SP TYPE: PAPFT OTHR DR: NICKOLAS LOO Tissues: 1 - CX/ENDOCX FOR PAP SMEARS Procedures: PAP THIN PREP/[facility] Screening HPV DNA PROBE Comments: [id number]
== END 2023-07-19 13:49 | disposition home or self-care (01) ==
LOC: LBN 13:48
PROVIDERS: PCP Nurse Practitioner Family; Visit Provider Obstetrics & Gynecology Gynecology
DX: Z12.4 Encounter for screening for malignant neoplasm of cervix (principal)
CPT/HCPCS: 88142; 87624

== ENCOUNTER 2025-02-27 13:58 | Outpatient (REF) | payer MEDICAID, SELFPAY | END 2025-02-27 13:59 | disposition home or self-care (01) | LOC: LBN 13:58 | PROVIDERS: Visit Provider Physician Assistant Medical | DX: J02.9 Acute pharyngitis, unspecified (principal) | CPT/HCPCS: 87081 ==